=== PATIENT | female | born 1965 | race Caucasian/White ===

== ENCOUNTER 2016-10-05 19:51 | Inpatient (IN) | payer BC ==
[~2016-10-05] VITALS: Ht 170.2 cm; Wt 64.5 kg
== END 2016-10-09 11:53 | disposition home or self-care (01) | DRG 387 ==
LOC: ER 19:51 → MED 21:40
PROVIDERS: ADMIT Internal Medicine
DX: K51.90 Ulcerative colitis, unspecified, without complications (principal); F41.9 Anxiety disorder, unspecified; F32.9 Major depressive disorder, single episode, unspecified; G43.909 Migraine, unspecified, not intractable, without status migrainosus; G25.81 Restless legs syndrome; Z87.891 Personal history of nicotine dependence; Z79.899 Other long term (current) drug therapy; Z90.711 Acquired absence of uterus with remaining cervical stump; Z83.71 Family history of colonic polyps; E87.6 Hypokalemia; R19.7 Diarrhea, unspecified
CPT/HCPCS: 36415; 87507; J1650

== ENCOUNTER 2016-10-05 19:51 | Emergency (ER) | payer BC | END 2016-10-05 21:40 | disposition critical access hospital (66) | LOC: ER 19:51 | DX: K52.9 Noninfective gastroenteritis and colitis, unspecified (principal); E87.6 Hypokalemia; D72.829 Elevated white blood cell count, unspecified; F32.9 Major depressive disorder, single episode, unspecified; G43.909 Migraine, unspecified, not intractable, without status migrainosus; Z87.891 Personal history of nicotine dependence; Z90.710 Acquired absence of both cervix and uterus | CPT/HCPCS: 36415; 96361; 96374 ==